=== PATIENT | male | born 1995 | race Caucasian/White ===

== ENCOUNTER 2020-03-30 17:53 | Emergency (ER) | payer BC ==
[~2020-03-30] VITALS: Ht 165.1 cm; Wt 90.7 kg
[2020-03-30] MEDS ORDERED: IBUPROFEN 800800 M1 PO (18:52)
[2020-03-30] MEDS ORDERED: NORCO 5-325 TA1 EAC2 PO (18:52)
[2020-03-30] MEDS ORDERED: CIPRODEX OTIC7.5 ML OTIC (18:52)
[2020-03-30 19:00] VITALS: BP 121/70
== END 2020-03-30 19:01 | disposition home or self-care (01) ==
LOC: M.ERS 17:53
DX: H60.92 Unspecified otitis externa, left ear (principal)